=== PATIENT | male | born 1945 | race Caucasian/White ===

== ENCOUNTER 2021-02-23 13:19 | Emergency (ER) | payer MEDICARE ==
[~2021-02-23] VITALS: Ht 182.9 cm; Wt 128.4 kg
[2021-02-23] MEDS ORDERED: WARF5 PO (13:32)
== END 2021-02-23 16:59 | disposition home or self-care (01) ==
LOC: ER 13:19
DX: T84.021A Dislocation of internal left hip prosthesis, initial encounter (principal); Z87.891 Personal history of nicotine dependence
CPT/HCPCS: 27250; 73502; 99152; 99283-25; A9270; J2704; J3010; J7030